=== PATIENT | male | born 1960 | race Native Hawaiian/Other Pacific Islander ===

== ENCOUNTER 2016-12-16 17:40 | Emergency (ER) | payer OTHER ==
[~2016-12-16] VITALS: Ht 182.9 cm; Wt 111.1 kg
[2016-12-16 17:42] VITALS: TEMP 98.9
[2016-12-16] MEDS ORDERED: PANTPAK PO (18:00)
[2016-12-16] MEDS ORDERED: METO50TA63 PO ×2 (18:01→18:02)
[2016-12-16] MEDS ORDERED: ALTACE5 MG PO (18:02)
[2016-12-16] MEDS ORDERED: ASPIRIN325 M1 OR (18:02)
[2016-12-16] MEDS ORDERED: SIMV40TA57 ×2 (18:03→18:04)
[2016-12-16] MEDS ORDERED: CLOPIDOGREL75 MG PO (18:03)
[2016-12-16] MEDS ORDERED: TRIA37.541 PO (18:05)
[2016-12-16 18:42] VITALS: BP 125/81
== END 2016-12-16 18:45 | disposition home or self-care (01) ==
LOC: ED 17:40
PROC: 0HQLXZZ Repair Left Lower Leg Skin, External Approach (ICD-10-PCS; principal; 2016-12-16)
DX: S81.832A Puncture wound without foreign body, left lower leg, initial encounter (principal); S80.12XA Contusion of left lower leg, initial encounter; W22.8XXA Striking against or struck by other objects, initial encounter; Y92.512 Supermarket, store or market as the place of occurrence of the external cause
CPT/HCPCS: 99282

== ENCOUNTER 2017-01-19 07:49 | Outpatient (CLI) | payer OTHER ==
[~2017-01-19 07:49] MED LIST: ALTACE5 MG PO; ASPIRIN325 M1 OR; CLOPIDOGREL75 MG PO; METO50TA63 PO; PANTPAK PO; SIMV40TA57; TRIA37.541 PO
== END 2017-01-19 19:41 | disposition home or self-care (01) ==
LOC: CT 07:49
DX: K76.89 Other specified diseases of liver (principal); R97.8 Other abnormal tumor markers
CPT/HCPCS: 36415; 82105; 82565; 84520; Q9963